=== PATIENT | male | born 1995 | race Caucasian/White ===

== ENCOUNTER 2023-08-05 08:46 | Outpatient (CLI) | payer OTHER, SELFPAY | END 2023-08-05 08:47 | disposition home or self-care (01) | LOC: NFLDUCREF 08:47 | PROVIDERS: Visit Provider Nurse Practitioner Family | DX: M10.9 Gout, unspecified (principal) | CPT/HCPCS: 84550 ==

== ENCOUNTER 2024-04-09 07:08 | Outpatient (CLI) | payer BC, SELFPAY ==
--- NOTE | 2024-04-09 07:15 | CRLHL7_ITS ---
For Patients: As a result of the Century Cures Act, medical imaging exams and procedure reports are released immediately into your electronic medical record. You may view this report before your referring provider. If you have questions, please contact your health care provider. INDICATION: Right testicular pain and lump on right side COMPARISON: none TECHNIQUE: Torres scale imaging was performed of the scrotum. In addition color Doppler and spectral Doppler analysis was performed of the testes. FINDINGS: The testes demonstrate normal arterial and venous blood flow on color Doppler and spectral Doppler analysis. The testes have uniform echogenicity with no evidence of a suspicious mass or area of inflammation. The right testis measures 5.0 x 2.5 x 3.4 cm in size and the left testis measures 4.6 x 2.4 x 3.2 cm. Lobular right epididymal head cyst is present which measures 9 x 9 x 10 millimeters. Small left epididymal head cyst measures 4 x 2 x 4 millimeters. Left varicocele. Vessels extend into the rete teste on the left. IMPRESSION: Bilateral epididymal head cysts, right greater than left. On the right, the cyst measures 1.0 cm. No suspicious testicular mass. Left varicocele. Dictated by Will Cummings MD @ 04/09/2024 10:03:21 AM (Electronically Signed)
== END 2024-04-09 07:09 | disposition home or self-care (01) ==
LOC: US 07:10
PROVIDERS: PCP Internal Medicine; Visit Provider Internal Medicine
DX: N45.1 Epididymitis (principal); I86.1 Scrotal varices
CPT/HCPCS: 76870; 93976

== ENCOUNTER 2025-01-25 07:46 | Emergency (ER) | payer BC, SELFPAY ==
[2025-01-25 08:05] VITALS: BP 142/94; PULSE 97; RESP 18; TEMP 36.9; O2SAT 95
--- NOTE | 2025-01-25 09:30 | ED_ITS ---
HPI - General Adult General Chief complaint: Abdominal Pain Stated complaint: Bloody stool, upper abdominal pain Time Seen by Provider: 01/25/25 08:22 History of Present Illness HPI narrative: c/o blood in stool yesterday x1. Had some rectal pain and blood was noted in the toilet and toilet paper. Also, c/o pain in upper ABD on left side along the rib cage. 29-year-old man presenting to the emergency department concern of abdominal pain and blood in stool. He has been feeling like he has had have a bowel movement constantly over the last week. Does have regular bowel movements, daily. Notes there rather narrow caliber or soft. Not large in well formed typically. He can sometimes have little blood in his stool but rarely. Yesterday though with bowel movement have much more than usual. He has been having discomfort in the left upper abdomen pain over this last week as well. Not pleuritic. Feels like it aches into his back as well. Does not typically struggle with heartburn but have that occasionally. Admittedly is concerned about potential cancer diag nosis given an aunt was without revealed symptoms until stage IV suddenly. He rarely drinks alcohol. Related Data Previous Rx's ?Medication ?Instructions ?Recorded omeprazole 40 mg capsule,delayed 40 mg PO DAILY #30 ca ps 02/01/25 release Allergies Allergy/AdvReac Type Severity Reaction Status Date / Time lactose Allergy Verified 02/01/25 14:54 iodine AdvReac Mild rash Verified 02/01/25 14:54 Sulfa (Sulfonamide AdvReac Verified 02/01/25 14:54 Antibiotics) Review of Systems Status of ROS: Reports: 6 or more systems reviewed and unremarkable except as noted in History and below [facility] Medical History (Updated 01/28/25 @ 14:41 by Arabella Astudillo) Costochondritis (01/25/25) ?M94.0 - Chondrocostal junction syndrome [[place]ze] (ICD-10) Bright red blood per rectum (01/25/25) ?K62.5 - Hemorrhage of anus and rectum (ICD-10) Epigastric pain (01/25/25) ?R10.13 - Epigastric pain (ICD-10) Seasonal affective disorder ?F33.8 - Other recurrent depressive disorders (ICD-10) History of torsion of testis (2007) ?Z87.438 - Personal history of other diseases of male genital organs (ICD-10) Epididymitis (03/2024) ?N45.1 - Epididymitis (ICD-10) Gout ?M10.9 - Gout, unspecified (ICD-10) Surgical History (Updated 01/28/25 @ 14:41 by Arabella Astudillo) History of surgery on arm ?Z98.890 - Other specified postprocedural states (ICD-10) Family History (Updated 01/28/25 @ 14:43 by Arabella Astudillo) Mother Diabetes Sleep apnea Anxiety Maternal Grandfather Diabetes Father High blood pressure Anxiety Depression Sister Anxiety Depression Maternal Grandmother Breast cancer Social History (Updated 02/01/25 @ 16:05 by Nicole Spears ~ GISEL) What is your current living situation?: I presently have a place to live Problems where you live: mold and no known problems In the past 12 months, utilities in danger of being shut off: no In past 12 months, lack of transportation kept you from medical appts, meetings, work, or getting things needed for daily living: no In the past 12 mos, have been you worried that your food would run out before you had money to buy more?: never true In the past 12 mos, the food you bought just didn't last and you didn't have money to buy more?: never true Smoking Status: Never smoker Do you use any of these nicotine containing products: None How often do you have a drink containing alcohol: 2-4 times a month How many standard drinks containing alcohol do you have on a typical day: 1 or 2 How often do you have six or more drinks on one occasion: Never AUDIT-C Alcohol total score: 2 Non-prescribed substance use: denies use How often does anyone, including family, friends and others, physically hurt you : never How often does anyone, including family, friends and others, insult or talk down to you: never How often does anyone, including family, friends and others, threaten you with harm: never How often does anyone, including family, friends and others, scream or curse at you: never service: No Health Related Social Needs: Inadequate housing (Z59.1) Exam Narrative: Exam Narrative: Pleasant. Somewhat somber is if little anxious. Breathing easily. Lungs appear to be clear. Heart in elevated rate and regular rhythm. Abdomen present bowel sounds is soft and tender in the left upper quadrant though right under or also reproducible along the lower rib more than just the edge. I do not see any inflammatory changes in the skin. No defect is palpable. Abdomen otherwise feels uncomfortable in the low abdomen or at least palpation here makes it feel like he has to have a bowel movement. I return to do anoscopy exam. There is some subtle hemorrhoidal tissue at 6:00 o'clock but otherwise than on internal exam a couple very small not inflamed hemorrhoids. No evidence of bleeding at this time. I do not see any fissure. Const: Vital Signs, click to edit/add: Vital Signs - 24 hr 01/25/25 08:05 01/25/25 10:28 01/25/25 11:00 Temperature 98.5 F Pulse Rate [Pulse Oximeter] 97 81 77 Respiratory Rate 18 16 16 Blood Pressure [Ri ght Upper Arm] 142/94 H 135/85 128/92 H Pulse Oximetry 95 95 96 Oxygen Delivery Me thod Room Air Room Air 01/25/25 12:00 01/25/25 12:30 Temperature Pulse Rate [Pulse Oximeter] 78 85 Respiratory Rate 16 16 Blood Pressure [Ri ght Upper Arm] 129/80 130/92 H Pulse Oximetry 95 96 Oxygen Delivery Me thod Room Air Documenting provider has reviewed patient's vital signs: yes Course Vital Signs Vital signs: Initial Vital Signs Temperature 98.5 F 01/25/25 08:05 Temperature Source Temporal Artery Scan 01/25/25 08:05 Pulse Rate 97 01/25/25 08:05 Pulse Rhythm Regular 01/25/25 08:05 Respiratory Rate 18 01/25/25 08:05 Blood Pressure 142/94 H 01/25/25 08:05 Blood Pressure Mean 110 H 01/25/25 08:05 Blood Pressure Position Sitting 01/25/25 08:05 Pulse Oximetry 95 01/25/25 08:05 Oxygen Delivery Method Room Air 01/25/25 08:05 Vital Signs Temperature 98.5 F 01/25/25 08:05 Pulse Rate 97 01/25/25 08:05 Respiratory Rate 18 01/25/25 08:05 Blood Pressure 142/94 H 01/25/25 08:05 Pulse Oximetry 95 01/25/25 08:05 Oxygen Delivery Method Room Air 01/25/25 08:05 Temperature 98.5 F 01/25/25 08:05 Pulse Rate 85 01/25/25 12:30 Respiratory Rate 16 01/25/25 12:30 Blood Pressure 130/92 H 01/25/25 12:30 Pulse Oximetry 96 01/25/25 12:30 Oxygen Delivery Method Room Air 01/25/25 12:00 Medications Administered Medications: Discontinued Medications Generic Name Dose Route Start Last Admin Trade Name Freq PRN Reason Stop Dose Admin Sodium Chloride 500 mls @ 500 mls/hr 01/25/25 09:46 01/25/25 10:49 0.9 % Sodium Chloride 500 Ml IV 01/25/25 10:45 Infused .Q1H ONE Infusion Lidocaine 1 patch 01/25/25 11:35 01/25/25 12:44 Lidocaine 5% Patch TRANSDERMA 01/25/25 11:36 1 patch ONCE ONE Administration Protocol Medical Decision Making MDM Narrative Medical decision making narrative: Understandable concerns. Differential includes diverticular bleed, deeper internal hemorrhoid. Pain might be otherwise representing costochondritis or even splenic infarct. Does not appear to have urinary tract symptoms other than location in his back that he mentioned. Might simply be some GERD and rectal passage bleeding unrelated. I think with his concerns and duration of symptoms will do CT imaging of abdomen pelvis along with standard lab evaluation. Labs are reassuring. Transaminases are a little elevated. Did place a lidocaine patch the left lower chest with reproducible low rib area pain. CT abdomen pelvis with IV contrast independently reviewed by me looks to be without inflammatory changes. I do not appreciate any acute abnormality. I do not see thickening about the stomach suggesting gastritis or isolated stomach wall thickening to suggest an ulcer. Radiology over-read below Indication: LUQ PAIN AND HEMATOCHEZIA Technique: CT abdomen/pelvis with IV contrast Comparison: None Findings: Lower thorax: Calcified granuloma in the right lower lobe; otherwise, unremarkable Abdomen/pelvis: Hepatomegaly and hepatic steatosis. No suspicious hepatic lesions. The gallbladder and biliary system are unremarkable. The spleen, pancreas, adrenal glands, kidneys, ureters, bladder, seminal vesicles, and prostate are unremarkable. No bowel obstruction or inflammation. The appendix is unremarkable. No free air, free fluid, or abscess. No abdominopelvic lymphadenopathy. Vasculature is unremarkable. Soft tissue/musculoskeletal: Tiny fat containing umbilical hernia. The bones are unremarkable. Impression: 1. No CT evidence of an acute process involving the abdomen or pelvis. 2. Hepatomegaly and hepatic steatosis. No focal hepatic lesions. Please note that all CT scans at this facility use dose modulation, iterative reconstruction, and/or weight-based dosing when appropriate to reduce radiation dose to as low as reasonably achievable. Dictated by John Carrington MD @ 01/25/2025 10:38:58 AM Elevation in transaminases I think is consistent with findings in CT of hepatic steatosis. No further events during time in the emergency department. See patient discharge plan for further discussion You mentioned the pain after eating lately. Yes. That might represent an ulcer or other inflammatory changes in your stomach. Without in mind I am prescribing 2 weeks of omeprazole as discussed. Will send this and your pharmacy. Reassess at that time. For breakthrough discomfort, can take famotidine or liquid antacid/anti-gas. If pain is persisting though, would be re-evaluated. Can discuss further workup with your primary care provider whether or not you might want to do a scope as discussed. Considering EGD free of stomach symptoms and colonoscopy to further clarify the bowel problems and bleeding you had. The pain on your chest/abdomen does also appear to be reproducible when I push on your ribs. This is why I say costochondritis and why we placed a lidocaine patch. If this patche is helpful, you might purchase more of those [id number]. Since we decided to focus on what appear to be stomach symptoms, would hold off on the 5 days of regularly dosed ibuprofen or naproxen that I mentioned. Medical Records Medical records reviewed: Yes I reviewed the patient's medical records Lab Data Lab results reviewed: Yes I reviewed the patient's lab results Labs: Lab Results 01/25/25 01/25/25 Range/Units 10:10 11:04 WBC 6.27 (4.50-11.00) K/uL RBC 5.82 (4.30-5.90) m/uL Hgb 16.7 (13.5-17.5) gm/dL Hct 48.6 (37.0-53.0) % MCV 84 (80-100) fL MCH 29 (26-34) pg MCHC 34 (32-36) gm/dL RDW Coeff of Dean 12.0 (11.5-15.5) % Plt Count 256 (140-440) K/uL Neut % (Auto) 57.7 (42.0-72.0) % Lymph % (Auto) 30.9 (20-44) % [place] % (Auto) 8.3 (0.0-11.0) % Eos % (Auto) 2.6 (0.0-7.0) % Baso % (Auto) 0.5 (0.0-3.0) % Neut # (Auto) 3.62 (1.7-7.0) K/uL Lymph # (Auto) 1.94 (0.90-2.90) K/uL [place] # (Auto) 0.50 (0.00-0.90) K/UL Eos # (Auto) 0.16 (0.00-0.50) K/uL Baso # (Auto) 0.03 (0.00-0.30) K/uL Abs Immat Gran (auto) 0.00 (0.00-0.30) K/uL Imm/Tot Granulo (auto) 0.0 % Sodium 139 (135-149) mmol/L Potassium 4.2 (3.6-5.1) mmol/L Chloride 104 (96-114) mmol/L Carbon Dioxide 25 (20-32) mmol/L Anion Gap 10 (7-15) mEq/L BUN 10 (5-24) mg/dL Creatinine 0.8 (0.5-1.5) mg/dL Estimated GFR 122 ml/min Glucose 103 (60-115) mg/dL Calcium 9.8 (8.4-10.6) mg/dL Total Bilirubin 1.0 (0.1-1.5) mg/dL Direct Bilirubin 0.3 (0.0-0.5) mg/dL AST 46 H (12-35) U/L ALT 101 H (4-50) U/L Alkaline Phosphatase 57 (40-150) U/L Troponin I < 0.01 (0.01-0.04) ng/mL C-Reactive Protein < 0.5 L (0.5-1.0) mg/dL Total Protein 7.9 (6.0-8.3) g/dL Albumin 4.7 (3.3-5.0) g/dL Lab Acknowledgement Test Added ECG Data Attestation: I personally reviewed and interpreted this ECG as follows: (Normal sinus rhythm. Rate of 74. Downgoing Ts in V3) Discharge Plan Discharge Clinical Impression: Costochondritis, Bright red blood per rectum, Epigastric pain Patient Disposition: Home, Self-Care Condition: Stable Additional Instructions: You mentioned the pain after eating lately. Yes. That might represent an ulcer or other inflammatory changes in your stomach. Without in mind I am prescribing 2 weeks of omeprazole as discussed. Will send this and your pharmacy. Reassess at that time. For breakthrough discomfort, can take famotidine or liquid antacid/anti-gas. If pain is persisting though, would be re-evaluated. Can discuss further workup with your primary care provider whether or not you might want to do a scope as discussed. Considering EGD free of stomach symptoms and colonoscopy to further clarify the bowel problems and bleeding you had. The pain on your chest/abdomen does also appear to be reproducible when I push on your ribs. This is why I say costochondritis and why we placed a lidocaine patch. If this patche is helpful, you might purchase more of those over-the-c ounter. Since we decided to focus on what appear to be stomach symptoms, would hold off on the 5 days of regularly dosed ibuprofen or naproxen that I mentioned. Prescriptions: No Action omeprazole 40 mg capsule,delayed release(DR/EC) 40 mg PO DAILY Qty: 30 3RF Follow Up/Referrals: Chong Madrid MD [Primary Care Provider, Internal Medicine] Stand Alone Forms: [employer] Info Instructions
--- NOTE | 2025-01-25 09:46 | CRLHL7_ITS ---
For Patients: As a result of the Century Cures Act, medical imaging exams and procedure reports are released immediately into your electronic medical record. You may view this report before your referring provider. If you have questions, please contact your health care provider. Indication: LUQ PAIN AND HEMATOCHEZIA Technique: CT abdomen/pelvis with IV contrast Comparison: None Findings: Lower thorax: Calcified granuloma in the right lower lobe; otherwise, unremarkable Abdomen/pelvis: Hepatomegaly and hepatic steatosis. No suspicious hepatic lesions. The gallbladder and biliary system are unremarkable. The spleen, pancreas, adrenal glands, kidneys, ureters, bladder, seminal vesicles, and prostate are unremarkable. No bowel obstruction or inflammation. The appendix is unremarkable. No free air, free fluid, or abscess. No abdominopelvic lymphadenopathy. Vasculature is unremarkable. Soft tissue/musculoskeletal: Tiny fat containing umbilical hernia. The bones are unremarkable. Impression: 1. No CT evidence of an acute process involving the abdomen or pelvis. 2. Hepatomegaly and hepatic steatosis. No focal hepatic lesions. Please note that all CT scans at this facility use dose modulation, iterative reconstruction, and/or weight-based dosing when appropriate to reduce radiation dose to as low as reasonably achievable. Dictated by John Carringotn MD @ 01/25/2025 10:38:58 AM (Electronically Signed)
[2025-01-25 10:21] LABS: Hematocrit* 48.6 % (37.0-53.0); Hemoglobin* 16.7 gm/dL (13.5-17.5); Immature Granulocytes Abs Auto 0.00 K/uL (0.00-0.30); Immature Granulocytes Pct Auto 0.0 %; Lymphocytes Absolute Auto 1.94 K/uL (0.90-2.90); Mean Corpuscular HGB Conc 34 gm/dL (32-36); Mean Corpuscular Hemoglobin 29 pg (26-34); Mean Corpuscular Volume 84 fL (80-100); RDW Coefficient of Variation % 12.0 % (11.5-15.5); Red Blood Count* 5.82 m/uL (4.30-5.90); White Blood Count* 6.27 K/uL (4.50-11.00)
[2025-01-25 10:22] LABS: Slide Review Reflex No
[2025-01-25] MEDS: 0.9 % SODIUM CHLORIDE 500 ML 500 ML IV (10:26)
[2025-01-25 10:28] VITALS: BP 135/85; PULSE 81; RESP 16; O2SAT 95
[2025-01-25 10:32] LABS: Albumin* 4.7 g/dL (3.3-5.0); Chloride* 104 mmol/L (96-114); Potassium* 4.2 mmol/L (3.6-5.1); Sodium* 139 mmol/L (135-149)
[2025-01-25 10:34] LABS: Blood Urea Nitrogen* 10 mg/dL (5-24); Creatinine* 0.8 mg/dL (0.5-1.5); Estimated Glomerular Filt Rate 122 ml/min
[2025-01-25 10:35] LABS: Alanine Aminotransferase* 101 U/L (4-50); Alkaline Phosphatase* 57 U/L (40-150); Anion Gap 10 mEq/L (7-15); Aspartate Amino Transferase* 46 U/L (12-35); Bilirubin Direct* 0.3 mg/dL (0.0-0.5); Bilirubin Total* 1.0 mg/dL (0.1-1.5); Calcium* 9.8 mg/dL (8.4-10.6); Carbon Dioxide* 25 mmol/L (20-32); Glucose* 103 mg/dL (60-115); Total Protein* 7.9 g/dL (6.0-8.3)
[2025-01-25 11:00] VITALS: BP 128/92; PULSE 77; RESP 16; O2SAT 96
[2025-01-25 12:00] VITALS: BP 129/80; PULSE 78; RESP 16; O2SAT 95
[2025-01-25 12:30] VITALS: BP 130/92; PULSE 85; RESP 16; O2SAT 96
[2025-01-25] MEDS: LIDOCAINE 5% PATCH 1 PATCH TRANSDERMA (12:44)
== END 2025-01-25 13:00 | disposition home or self-care (01) ==
PROVIDERS: Emergency Provider Family Medicine; PCP Internal Medicine
DX: M94.0 Chondrocostal junction syndrome [Tietze] (principal); K62.5 Hemorrhage of anus and rectum; R10.13 Epigastric pain
CPT/HCPCS: 36415; 74177; 80048; 80076; 84484; 85025; 86140; 93005; 99284; 99285; A9270; J7030; Q9967

== ENCOUNTER 2025-02-14 11:29 | Outpatient (CLI) | payer BC, SELFPAY ==
--- NOTE | 2025-02-14 12:56 | P.ANES_ITS ---
Anesthesia Charges Start Date/Time Anesthesia Start Date: 02/14/25 Anesthesia Start Time: 12:19 Stop Date/Time Anesthesia Stop Date: 02/14/25 Anesthesia Stop Time: 12:52 Coding CPT Codes CPT Codes: ANES UPR LWR GI NDSC PX - 94506 ([id number]) P2 - PATIENT W/MILD SYST DISEASE, QK - RADON INSPECTOR 2-4 CNCRNT ANES PROC, QX - TRANSPORTATION SECURITY OFFICER SVC W/ MD MED DIRECTION
--- NOTE | 2025-02-14 12:56 | W.ANESCHARGE ---
Anesthesia Charges Start Date/Time Anesthesia Start Date: 02/14/25 Anesthesia Start Time: 12:19 Stop Date/Time Anesthesia Stop Date: 02/14/25 Anesthesia Stop Time: 12:52 Coding CPT Codes CPT Codes: ANES UPR LWR GI NDSC PX - 86015 ([id number]) P2 - PATIENT W/MILD SYST DISEASE, QK - IMAGE ARCHIVIST 2-4 CNCRNT ANES PROC, QX - ICE SKATING INSTRUCTOR SVC W/ MD MED DIRECTION
--- NOTE | 2025-02-14 12:57 | P.ANES_ITS ---
Anesthesia Charges Start Date/Time Anesthesia Start Date: 02/14/25 Anesthesia Start Time: 12:19 Stop Date/Time Anesthesia Stop Date: 02/14/25 Anesthesia Stop Time: 12:52 Coding CPT Codes CPT Codes: ANES UPR LWR GI NDSC PX - 85368 ([id number]) P2 - PATIENT W/MILD SYST DISEASE, QK - CONCRETE MIXER OPERATOR 2-4 CNCRNT ANES PROC, QX - DIABETES TRAINER SVC W/ MD MED DIRECTION
--- NOTE | 2025-02-14 12:57 | W.ANESCHARGE ---
Anesthesia Charges Start Date/Time Anesthesia Start Date: 02/14/25 Anesthesia Start Time: 12:19 Stop Date/Time Anesthesia Stop Date: 02/14/25 Anesthesia Stop Time: 12:52 Coding CPT Codes CPT Codes: ANES UPR LWR GI NDSC PX - 45043 ([id number]) P2 - PATIENT W/MILD SYST DISEASE, QK - SPECIAL ASSETS OFFICER 2-4 CNCRNT ANES PROC, QX - CUFFING MACHINE OPERATOR SVC W/ MD MED DIRECTION
== END 2025-02-14 11:30 | disposition home or self-care (01) ==
LOC: OP CLINIC 11:29
PROVIDERS: PCP Internal Medicine; Visit Provider Internal Medicine
DX: K92.1 Melena (principal); D12.3 Benign neoplasm of transverse colon; K52.9 Noninfective gastroenteritis and colitis, unspecified; K92.2 Gastrointestinal hemorrhage, unspecified
CPT/HCPCS: 00813; 43239; 45380; J2704; J3490